=== PATIENT | male | born 1995 ===

== ENCOUNTER 2020-11-06 17:16 | Emergency (ER) | payer MEDICAID ==
[~2020-11-06] VITALS: Ht 175.3 cm; Wt 109.0 kg
[2020-11-06] MEDS ORDERED: DEXAMETHASONE 4 MG TABLET ONE (19:25)
[2020-11-06] MEDS ORDERED: DEXAMETHASONE 4 MG TABLET PO ONE (19:30)
[2020-11-06 20:12] VITALS: BP 126/73
== END 2020-11-06 20:13 ==
LOC: ED 19:45
DX: J02.0 Streptococcal pharyngitis (principal)
CPT/HCPCS: 87081; 87880; 99283